=== PATIENT | female | born 1970 | race Caucasian/White ===

== ENCOUNTER 2018-01-01 15:10 | Emergency (ER) | payer OTHER ==
[~2018-01-01] VITALS: Ht 172.7 cm; Wt 67.1 kg
[2018-01-01] MEDS ORDERED: Augmentin 875-1 EACH PO (17:21)
[2018-01-01] MEDS ORDERED: FLUC150A PO (17:21)
== END 2018-01-01 17:34 | disposition home or self-care (01) ==
LOC: ER 15:10
DX: S61.551A Open bite of right wrist, initial encounter (principal); S61.452A Open bite of left hand, initial encounter; S61.451A Open bite of right hand, initial encounter; S61.051A Open bite of right thumb without damage to nail, initial encounter; S61.253A Open bite of left middle finger without damage to nail, initial encounter; F17.200 Nicotine dependence, unspecified, uncomplicated; W54.0XXA Bitten by dog, initial encounter
CPT/HCPCS: 73120; 73140; 90471; 90714; 99283

== ENCOUNTER → 2018-07-05 | Outpatient (CLI) | payer OTHER ==
[~2018-07-05] MED LIST: Augmentin 875-1 EACH PO; FLUC150A PO
== END ==
LOC: LAB SHORT 17:06 → LAB EV 17:06
DX: K61.2 Anorectal abscess (principal)
CPT/HCPCS: 87070; 87075; 87076; 87077; 87185; 87186; 87205

== ENCOUNTER 2018-11-06 08:51 | Day surgery (SDC) | payer OTHER ==
[~2018-11-06] VITALS: Ht 172.7 cm; Wt 66.8 kg
[~2018-11-06 08:51] MED LIST changes: +LIOT25
[2018-11-06] MEDS ORDERED: MELO7.5 (09:33)
[2018-11-06] MEDS ORDERED: ALPR.5 (09:33)
[2018-11-06] MEDS ORDERED: GABA300 (09:33)
== END 2018-11-06 10:51 | disposition home or self-care (01) ==
LOC: ORSCSDS 08:51
PROVIDERS: Surgery
PROC: 0DJD8ZZ Inspection of Lower Intestinal Tract, Via Natural or Artificial Opening Endoscopic (ICD-10-PCS; principal; 2018-11-06 10:00)
DX: Z12.11 Encounter for screening for malignant neoplasm of colon (principal); E03.9 Hypothyroidism, unspecified; F17.210 Nicotine dependence, cigarettes, uncomplicated; Z79.899 Other long term (current) drug therapy
CPT/HCPCS: J7120

== ENCOUNTER 2019-10-20 07:33 | Day surgery (SDC) | payer OTHER ==
[~2019-10-20] VITALS: Ht 172.7 cm; Wt 65.4 kg
[~2019-10-20 07:33] MED LIST changes: +ADVIL PO; +ALPR.5 PO; +CYCL10 PO; +GABA300 PO; -LIOT25; +LIOT25 PO; +MELO7.5 PO; +PSEU120ER PO; +TRAM50 PO; +[UNRECOGNIZED DRUG - MIXTURE] SL; +[UNRECOGNIZED DRUG - OTHER] VAG
--- NOTE | 2019-10-20 08:20 | NUR ---
Ambulatory in Day Surgery History, Chart, Medications and Allergies reviewed before start of procedure.Patient confirms NPO status and agrees with scheduled surgery. Patient reports completing Chlorhexadine shower X2 prior to admission to hospital.Lungs clear T/O to Auscultation. Patient States Post-Procedure ride home has been arranged. NOSE JEWELERY TAPED AND CONSENT SIGNED.
== END 2019-10-20 12:01 | disposition home or self-care (01) ==
LOC: ORSCMMR 07:33 → ORD 09:00 → ORSCMMR 09:00
PROVIDERS: Surgery
PROC: 0DBQ3ZZ Excision of Anus, Percutaneous Approach (ICD-10-PCS; principal; 2019-10-20 09:00)
DX: K61.2 Anorectal abscess (principal); E03.9 Hypothyroidism, unspecified; Z79.899 Other long term (current) drug therapy; F17.210 Nicotine dependence, cigarettes, uncomplicated
CPT/HCPCS: 88304; A9270-GY; J0690; J2704; J3010; J7120

== ENCOUNTER 2025-01-16 20:08 | Inpatient (IN) | payer BC ==
[~2025-01-16] VITALS: Ht 170.2 cm; Wt 68.5 kg
[~2025-01-16 20:08] MED LIST changes: +Ativan1 MG SL; +EUTHYROX25 MC1 PO
[2025-01-16] MEDS ORDERED: Ondansetron HCl 2 MG / ML 2ML Vial IV ONE (20:45)
[2025-01-16] MEDS ORDERED: HYDROmorphone HCl/Pf 1MG SYR IV ONE ×2 (20:45→22:30)
[2025-01-16 20:49] LABS: BASOPHILS ABSOLUTE AUTO 0.08 K/mm3 (0.00-0.23); BASOPHILS PERCENT AUTO 1 % (0-2); EOSINOPHILS ABSOLUTE AUTO 0.14 K/mm3 (0.00-0.68); EOSINOPHILS PERCENT AUTO 1 % (0-6); Hematocrit 39.8 % (33.0-51.0); Hemoglobin 13.4 g/dL (11.5-16.0); IMMATURE GRAN ABSOLUTE AUTO 0.08 K/mm3 (0.00-0.10); IMMATURE GRAN PERCENT AUTO 1 % (0-1); LYMPHOCYTES ABSOLUTE AUTO 2.28 K/mm3 (0.84-5.20); LYMPHOCYTES PERCENT AUTO 15 % (21-46); MONOCYTES ABSOLUTE AUTO 0.79 K/mm3 (0.16-1.47); MONOCYTES PERCENT AUTO 5 % (4-13); Mean Corpuscular HGB 31.5 pg (26.0-34.0); Mean Corpuscular HGB Conc 33.7 g/dL (31.5-36.5); Mean Corpuscular Volume 93 fL (80-100); Mean Platelet Volume 10.6 fL (9.1-12.4); NEUTROPHILS PERCENT AUTO 78 % (41-73); Platelet Count 276 K/mm3 (150-400); RDW Coefficient Variation 12.5 % (11.7-14.2); RDW Standard Deviation 42.9 fL (35.1-46.3); Red Blood Cell Count 4.26 M/mm3 (3.80-5.20); White Blood Cell Count 15.17 K/mm3 (4.00-11.30)
[2025-01-16 21:09] LABS: Albumin, Blood 3.9 g/dL (3.4-5.0); Albumin/Globulin Ratio 1.4 (0.8-1.8); Bilirubin, Total 0.5 mg/dL (0.1-1.0); Bun/Creatinine Ratio 23.2 (12.0-20.0); Calcium, Blood 8.9 mg/dL (8.5-10.1); Creatinine, Blood 0.73 mg/dL (0.40-1.00); Globulin, Blood 2.8 g/dL (2.2-4.0); Potassium, Blood 3.5 mmol/L (3.5-5.5); Total Protein, Blood 6.7 g/dL (6.4-8.2)
[2025-01-17] MEDS ORDERED: Ondansetron HCl 2 MG / ML 2ML Vial IV PRN (01:00)
[2025-01-17] MEDS ORDERED: Lactated Ringer's 1,000 ML IV SCH ×2 (01:00→12:10)
[2025-01-17] MEDS ORDERED: HYDROmorphone HCl/Pf 1MG SYR IV ONE (01:25)
[2025-01-17] MEDS ORDERED: FentaNYL Citrate 50 MCG/ML 2 ML Injection IV PRN ×2 (01:25→09:10)
[2025-01-17 01:48] VITALS: BP 101/54
[2025-01-17] MEDS ORDERED: Ketorolac Tromethamine 15mg Vial IV PRN (02:10)
[2025-01-17] MEDS ORDERED: Calcium Carbonate 500 MG Tab Chew PO PRN (02:15)
[2025-01-17] MEDS ORDERED: CELE100 PO (02:32)
[2025-01-17] MEDS ORDERED: PROGESTERONE 200 MG (02:34)
[2025-01-17 03:58] LABS: BASOPHILS ABSOLUTE AUTO 0.05 K/mm3 (0.00-0.23); BASOPHILS PERCENT AUTO 0 % (0-2); EOSINOPHILS PERCENT AUTO 1 % (0-6); Hematocrit 37.4 % (33.0-51.0); Hemoglobin 12.5 g/dL (11.5-16.0); IMMATURE GRAN ABSOLUTE AUTO 0.04 K/mm3 (0.00-0.10); IMMATURE GRAN PERCENT AUTO 0 % (0-1); LYMPHOCYTES ABSOLUTE AUTO 2.13 K/mm3 (0.84-5.20); LYMPHOCYTES PERCENT AUTO 19 % (21-46); MONOCYTES ABSOLUTE AUTO 0.69 K/mm3 (0.16-1.47); MONOCYTES PERCENT AUTO 6 % (4-13); Mean Corpuscular HGB 31.6 pg (26.0-34.0); Mean Corpuscular HGB Conc 33.4 g/dL (31.5-36.5); Mean Corpuscular Volume 94 fL (80-100); Mean Platelet Volume 10.2 fL (9.1-12.4); NEUTROPHILS ABSOLUTE AUTO 8.35 K/mm3 (1.96-9.15); NEUTROPHILS PERCENT AUTO 73 % (41-73); Platelet Count 248 K/mm3 (150-400); RDW Coefficient Variation 12.4 % (11.7-14.2); RDW Standard Deviation 43.5 fL (35.1-46.3); Red Blood Cell Count 3.96 M/mm3 (3.80-5.20); White Blood Cell Count 11.36 K/mm3 (4.00-11.30)
[2025-01-17 04:27] LABS: Albumin, Blood 3.3 g/dL (3.4-5.0); Albumin/Globulin Ratio 1.3 (0.8-1.8); Bilirubin, Total 0.4 mg/dL (0.1-1.0); Bun/Creatinine Ratio 21.3 (12.0-20.0); Calcium, Blood 8.7 mg/dL (8.5-10.1); Creatinine, Blood 0.7 mg/dL (0.40-1.00); Globulin, Blood 2.6 g/dL (2.2-4.0); Magnesium, Blood 1.7 mg/dL (1.6-2.4); Potassium, Blood 3.7 mmol/L (3.5-5.5); Total Protein, Blood 5.9 g/dL (6.4-8.2)
--- NOTE | 2025-01-17 05:56 | NUR ---
SHIFT SUMMARY PT ER ADMIT THIS SHIFT FOR SBO, PT HAS RESTED IN BED SINCE ADMISSION. PAIN HAS BEEN WELL CONTROLLED WITH MEDS PER EMAR. PT HAS HAD NO N/V. ABD IS TENDER, BOWEL TONES HYPERACTIVE. IVF INFUSING. PLAN IS FOR BOWEL REST. VITALS STABLE, BED IN LOWEST POSITION, CALL LIGHT WITHIN REACH.
[2025-01-17 07:06] VITALS: BP 113/49
[2025-01-17] MEDS ORDERED: Liothyronine Sodium 5 MCG Tab PO SCH (09:00)
[2025-01-17] MEDS ORDERED: Levothyroxine Sodium 0.025 MG Tab PO SCH (09:00)
[2025-01-17] MEDS ORDERED: HYDROmorphone HCl/Pf 1MG SYR IV PRN ×2 (13:30→13:44)
[2025-01-17 14:09] VITALS: BP 128/71
[2025-01-17 14:10] VITALS: BP 128/71
--- NOTE | 2025-01-17 14:27 | NUR ---
PT CONTINUED TO REPORT ELEVATED PAIN AFTER SHE RETURNED FROM SMALL BOWEL FOLLOW THROUGH AND AFTER GETTING FENTANYL. DILAUDID GIVEN PER ORDER. PT PLACED ON CONTINUOUS PULSE OX FOR HIGH RISK PAIN MANAGEMENT. PAIN IMPROVED FROM 10/10 TO 2/10.
[2025-01-17] MEDS ORDERED: Ondansetron HCl 2 MG / ML 2ML Vial IV ONE (14:40)
--- NOTE | 2025-01-17 14:57 | NUR ---
PATIENT COMPLAINED OF SEVEREE ABDOMINAL PAIN 9/10 AND NAUSEA. MEDICATED PER EMAR. ICE PACK TO BACK OF NECK, FAN IN HER FACE FOR COMFORT. IS AT THE BEDSIDE. PATIENT IS HAVING SOME RELIEF AT THIS TIME. NO VOMITING.
[2025-01-17 15:01] VITALS: BP 133/75
--- NOTE | 2025-01-17 17:16 | NUR ---
PATIENT IS ALERT AND ORIENTED AND COOPERATIVE WITH CARE. C/O MILD ABD PAIN THIS MORNING THAT INCREASED DRASTICALLY FOLLOWING THE SMALL BOWEL FOLLOW THROUGH. SHE NEEDED IV PAIN AND NAUSEA MEDICATIONS FOR PAIN 06/30. SHE DID PUKE UP THE REMAINING CONTRAST AFTER A COUPLE HOURS. REPORTS BELCHING. NO BM. WAS AT THE BEDSIDE MOST OF THE DAY. PATIENT REMAINS NPO. SBA IN THE ROOM BECAUSE OF LINES. LR RUNNING AT 125/HR. ON RA WITH CONTINUOUS PULSE OX IN PLACE. PATIENT IS GETTING SOME REST NOW. SOUNDS LIKE THE PLAN IS FOR ONE MORE SET OF IMAGES PER DR. ABURTO. WILL CONTINUE TO MONITOR.
[2025-01-17 19:03] VITALS: BP 124/55
[2025-01-17] MEDS ORDERED: Gabapentin 300 MG Cap PO SCH (21:00)
[2025-01-18] VITALS (18 sets, daily range): BP systolic 100–141; BP diastolic 47–89
[2025-01-18] MEDS ORDERED: Promethazine HCl 25 MG Supp PR PRN (00:35)
[2025-01-18 04:35] LABS: BASOPHILS ABSOLUTE AUTO 0.06 K/mm3 (0.00-0.23); BASOPHILS PERCENT AUTO 0 % (0-2); EOSINOPHILS ABSOLUTE AUTO 0.04 K/mm3 (0.00-0.68); EOSINOPHILS PERCENT AUTO 0 % (0-6); Hemoglobin 15.1 g/dL (11.5-16.0); IMMATURE GRAN ABSOLUTE AUTO 0.07 K/mm3 (0.00-0.10); IMMATURE GRAN PERCENT AUTO 0 % (0-1); LYMPHOCYTES ABSOLUTE AUTO 1.82 K/mm3 (0.84-5.20); LYMPHOCYTES PERCENT AUTO 10 % (21-46); MONOCYTES ABSOLUTE AUTO 1.09 K/mm3 (0.16-1.47); MONOCYTES PERCENT AUTO 6 % (4-13); Mean Corpuscular HGB 32.1 pg (26.0-34.0); Mean Corpuscular HGB Conc 34.3 g/dL (31.5-36.5); Mean Corpuscular Volume 93 fL (80-100); Mean Platelet Volume 10.4 fL (9.1-12.4); NEUTROPHILS ABSOLUTE AUTO 15.67 K/mm3 (1.96-9.15); NEUTROPHILS PERCENT AUTO 84 % (41-73); Platelet Count 285 K/mm3 (150-400); RDW Coefficient Variation 12.5 % (11.7-14.2); RDW Standard Deviation 43.3 fL (35.1-46.3); Red Blood Cell Count 4.71 M/mm3 (3.80-5.20); White Blood Cell Count 18.75 K/mm3 (4.00-11.30)
[2025-01-18 04:59] LABS: Albumin, Blood 3.9 g/dL (3.4-5.0); Albumin/Globulin Ratio 1.2 (0.8-1.8); Bilirubin, Total 0.5 mg/dL (0.1-1.0); Bun/Creatinine Ratio 24.6 (12.0-20.0); Calcium, Blood 10.2 mg/dL (8.5-10.1); Creatinine, Blood 0.89 mg/dL (0.40-1.00); Globulin, Blood 3.2 g/dL (2.2-4.0); Potassium, Blood 3.8 mmol/L (3.5-5.5); Total Protein, Blood 7.1 g/dL (6.4-8.2)
[2025-01-18] MEDS ORDERED: NS 250 ML IV ONE (05:40)
--- NOTE | 2025-01-18 05:40 | NUR ---
PT HAD EMESIS 800 ML SINCE RECEIVING PHENERGAN SUPPPOS PER NEW ORDER.VOID HAS BEEN 300 ML. I CALLED AND DISCUSSED I/O, ADVISED PT HAS SLIGHT JVD,BUT DENIES ANY HX CARDIAC ISSUES
--- NOTE | 2025-01-18 06:38 | NUR ---
MUTIPLE ADJUSTMENTS TO HI FLOW TONIGHT.SEE RT NOTES.PT CURRENTLY ON 16l @51%
[2025-01-18] MEDS ORDERED: Lactated Ringer's 1,000 ML IV SCH ×3 (07:20→10:50)
[2025-01-18] MEDS ORDERED: Citric Acid/Sodium Citrate 30 ML BTL PO ONE (07:20)
[2025-01-18] MEDS ORDERED: Midazolam HCl 1MG / ML 2ML Vial IV ONE (07:25)
[2025-01-18] MEDS ORDERED: Albuterol 2.5 MG/3 ML VIAL INH ONE (07:25)
[2025-01-18] MEDS ORDERED: Ipratropium Bromide INH 0.02% 0.5 mg/2.5ML Vial INH ONE (07:25)
[2025-01-18] MEDS ORDERED: Lidocaine HCl 1% 5 ML SYR INJ ONE ×2 (07:25)
[2025-01-18] MEDS ORDERED: Lidocaine HCl 2% 20 ML MDV ONE (07:29)
[2025-01-18] MEDS ORDERED: Dexamethasone Sod Phos 10 MG/ML 1ML VIAL ONE (07:29)
[2025-01-18] MEDS ORDERED: Rocuronium Bromide 10 MG/ML 5ML Injection IV ONE ×2 (07:29→09:29)
[2025-01-18] MEDS ORDERED: propofoL 40 ML IV ONE (07:29)
[2025-01-18] MEDS ORDERED: Ondansetron HCl 2 MG / ML 2ML Vial ONE ×2 (07:29→11:05)
[2025-01-18] MEDS ORDERED: FentaNYL Citrate 50 MCG/ML 2 ML Injection ONE ×3 (07:29→10:21)
[2025-01-18] MEDS ORDERED: Bupivacaine 0.5% HCl 5 MG/ML 30MLVIAL ONE (07:42)
--- NOTE | 2025-01-18 08:28 | NUR ---
PT TO OR VIA BED
[2025-01-18] MEDS ORDERED: CeFAZolin Sodium 2,000 MG VIAL ONE (08:33)
[2025-01-18] MEDS ORDERED: CeFAZolin Sodium 2,000 MG in NS 100 ML IV SCH (08:35)
--- NOTE | 2025-01-18 09:00 | NUR ---
PT TO O.R., 2 IVS PLACED/1 18G INFUSING LR/BREATHING TREATMENT GIVEN/ VERSED 2MG IV GIVEN/JEWELRY REF SIGNED/TAPED, PT A&OX4/VSS/RA/ BEDSIDE FOR SURGEON AND ACP CONSULTS, LEFT VIA GURN WITH EUGENIA REGALADO TO O.R.
[2025-01-18] MEDS ORDERED: Glycopyrrolate 0.2 MG/ML 5ML VIAL ONE (09:56)
[2025-01-18] MEDS ORDERED: Lidocaine HCl 2% Jelly 120MG/6ML SYR (20MG PER ML) ONE (09:56)
[2025-01-18] MEDS ORDERED: Neostigmine Methylsulfate 5MG/5ML SYR ONE (09:56)
[2025-01-18] MEDS ORDERED: FentaNYL Citrate 50 MCG/ML 2 ML Injection IV PRN ×3 (10:10→10:15)
[2025-01-18] MEDS ORDERED: Albuterol 2.5 MG/3 ML VIAL INH PRN (10:15)
[2025-01-18] MEDS ORDERED: Ondansetron HCl 2 MG / ML 2ML Vial IV PRN ×2 (10:15→10:50)
[2025-01-18] MEDS ORDERED: Morphine Sulfate 4 MG/1 ML Injection IV PRN (10:15)
[2025-01-18] MEDS ORDERED: HYDROmorphone HCl/Pf 1MG SYR IV PRN (10:45)
[2025-01-18] MEDS ORDERED: HYDROcodone 5-APAP 325 TAB PO PRN (10:50)
[2025-01-18] MEDS ORDERED: Ketorolac Tromethamine 30mg Vial IV PRN (10:55)
[2025-01-18] MEDS ORDERED: Morphine Sulfate 4 MG/1 ML Injection ONE (11:02)
--- NOTE | 2025-01-18 11:59 | NUR ---
PT TO ROOM 210. GAUZE DRESSING TO UMBILICUS CDI .ABD BINDER ON. PAIN RATED 10/10 PER PT. MEDICATED PER ORDER. SCDS ON. POST OP VS STARTED. WILL CONTINUE TO MONITOR. SPOUSE/SO AT BEDSIDE
[2025-01-18] MEDS ORDERED: CeFAZolin Sodium 1,000 MG in NS 50 ML IV SCH (17:00)
--- NOTE | 2025-01-18 17:08 | NUR ---
END OF SHIFT PT RESTING. RATES PAIN 6/10 UMBILICUS. ABD BINDER REMAINS ON. IV INFUSING PER ORDER. SCDS ON. WILL CONTINUE TO MONITOR
[2025-01-19 03:07] VITALS: BP 118/70
[2025-01-19 05:21] LABS: Hematocrit 37.2 % (33.0-51.0); Hemoglobin 12.8 g/dL (11.5-16.0); Mean Corpuscular HGB 32.3 pg (26.0-34.0); Mean Corpuscular HGB Conc 34.4 g/dL (31.5-36.5); Mean Corpuscular Volume 94 fL (80-100); Mean Platelet Volume 11.3 fL (9.1-12.4); Platelet Count 233 K/mm3 (150-400); RDW Coefficient Variation 12.6 % (11.7-14.2); RDW Standard Deviation 43.7 fL (35.1-46.3); Red Blood Cell Count 3.96 M/mm3 (3.80-5.20); White Blood Cell Count 14.33 K/mm3 (4.00-11.30)
[2025-01-19 05:42] LABS: Calcium, Blood 8.2 mg/dL (8.5-10.1); Creatinine, Blood 1.07 mg/dL (0.40-1.00); Potassium, Blood 4.4 mmol/L (3.5-5.5)
[2025-01-19 05:45] LABS: BAND PERCENT MAN 42 % (0-8); BASOPHILS PERCENT MAN 0 % (0-2); EOSINOPHILS PERCENT MAN 0 % (0-6); LYMPHOCYTES ABSOLUTE MAN 1.28 K/mm3 (0.84-5.20); LYMPHOCYTES PERCENT MAN 9 % (21-46); MONOCYTES ABSOLUTE MAN 0.85 K/mm3 (0.16-1.47); MONOCYTES PERCENT MAN 6 % (4-13); NEUTROPHILS ABSOLUTE MAN 12.18 K/mm3 (1.96-9.15); SEG NEUTROPHILS PERCENT MAN 43 % (41-73); TOTAL CELLS COUNTED 100
--- NOTE | 2025-01-19 06:48 | NUR ---
NOC SUMMARY- PT REQUIRED IV PAIN MEDS. PT ABLE TO SLEEP OFF AND ON. PT AMBULATORY TO BATHROOM. PT HAVING SIPS N CHIPS. NO NAUSEA. PT DRESSING HAS SCANT SHADOWING. NO OTHER ISSUES. CALL LIGHT IN REACH.
[2025-01-19 07:26] VITALS: BP 123/64
[2025-01-19] MEDS ORDERED: Enoxaparin 40 MG/0.4 ML SYR SC SCH (09:00)
[2025-01-19] MEDS ORDERED: OxyCODONE 5 mg/Acetamin 325 mg TABLET PO PRN (16:00)
[2025-01-19 16:54] VITALS: BP 114/61
[2025-01-19] MEDS ORDERED: LORazepam 1 MG Tab PO PRN (16:55)
--- NOTE | 2025-01-19 17:49 | NUR ---
END OF SHIFT PT RESTING COMFORTABLY. PAIN PRESENTLY UNDER CONTROL. ABDOMINAL BINDER ON.
[2025-01-19 20:07] VITALS: BP 113/66
[2025-01-19] MEDS ORDERED: Docusate Sodium 100 MG Cap PO SCH (21:00)
[2025-01-20 04:42] LABS: Hematocrit 31.3 % (33.0-51.0); Hemoglobin 10.3 g/dL (11.5-16.0); Mean Corpuscular HGB 31.4 pg (26.0-34.0); Mean Corpuscular HGB Conc 32.9 g/dL (31.5-36.5); Mean Corpuscular Volume 95 fL (80-100); Mean Platelet Volume 10.8 fL (9.1-12.4); Platelet Count 186 K/mm3 (150-400); RDW Coefficient Variation 12.6 % (11.7-14.2); RDW Standard Deviation 43.8 fL (35.1-46.3); Red Blood Cell Count 3.28 M/mm3 (3.80-5.20)
[2025-01-20 04:58] LABS: Bun/Creatinine Ratio 39.5 (12.0-20.0); Calcium, Blood 7.6 mg/dL (8.5-10.1); Creatinine, Blood 0.89 mg/dL (0.40-1.00); Potassium, Blood 3.6 mmol/L (3.5-5.5)
[2025-01-20 05:07] LABS: BAND PERCENT MAN 43 % (0-8); BASOPHILS PERCENT MAN 0 % (0-2); EOSINOPHILS ABSOLUTE MAN 0.09 K/mm3 (0.00-0.68); EOSINOPHILS PERCENT MAN 2 % (0-6); LYMPHOCYTES ABSOLUTE MAN 0.28 K/mm3 (0.84-5.20); LYMPHOCYTES PERCENT MAN 6 % (21-46); METAMYELOCYTE ABSOLUTE MAN 0.18 K/mm3 (0.00-0.00); METAMYELOCYTE PERCENT MAN 4 % (0-0); MONOCYTES ABSOLUTE MAN 0.32 K/mm3 (0.16-1.47); MONOCYTES PERCENT MAN 7 % (4-13); SEG NEUTROPHILS PERCENT MAN 38 % (41-73); TOTAL CELLS COUNTED 100
--- NOTE | 2025-01-20 06:40 | NUR ---
SHIFT SUMMAYR; PATIENT ONLY NEEDED ZOFRAN ONCE MY SHIFT. PAINT MEDS EFFECTIVE. OXIMETER DROPPING DURING SLEEP SO PUT NC/O2/2L JUST FOR THE NIGHT. THAT HELPED HER GET BETTER SLEEP TONIGHT. LR/125ML/HR ALL NIGHT.
[2025-01-20 08:18] VITALS: BP 106/57
[2025-01-20] MEDS ORDERED: Lactated Ringer's 1,000 ML IV SCH (08:20)
[2025-01-20 15:29] VITALS: BP 104/57
--- NOTE | 2025-01-20 17:22 | NUR ---
SUMMARY PT'S REPORT OF CONFUSION REPORTED TO DR. CONNER THIS AM, NO NEW ORDERS RECEIEVED, DENIES ANY MORE EPISODES OF CONFUSION THE REST OF SHIFT, PT HAS AMBULATED X3 TODAY, DENIES PASSING ANY FLATUS, DENIES ANY NAUSEA, PT HAS HAD 2 PERCOCET FOR PAIN, ABD DSG C/D/I, NO ACUTE CHANGES THIS SHIFT.
[2025-01-20] MEDS ORDERED: OxyCODONE 5 mg/Acetamin 325 mg TABLET PO PRN (17:45)
[2025-01-20] MEDS ORDERED: HYDROmorphone HCl/Pf 1MG SYR IV PRN (17:45)
[2025-01-20 19:58] VITALS: BP 114/71
--- NOTE | 2025-01-21 05:14 | NUR ---
SHIFT SUMMARY NO ACUTE CHANGES OVERNIGHT. PT TOLERATING CLEAR LIQUID DIET. PAIN MANAGED PER EMAR. SURGICAL SITE WNL. BOWEL TONES HYPERACTIVE, PT REPORTS THAT SHE IS STILL NOT PASSING GAS. PT REPORTS NO NAUSEA. VITALS STABLE. PT INDEPENDENT IN ROOM. BED IN LOWEST POSITION, CALL LIGHT WITHIN REACH.
[2025-01-21 05:26] VITALS: BP 115/70
--- NOTE | 2025-01-21 06:47 | NUR ---
CHEST TIGHTNESS AROUND 0530 PT REPORTED CHEST TIGHTNESS. SHE STATES THAT IT IS PROBABLY ANXIETY AND RELATED TO HOW SHE SLEPT, STATING THAT BED WAS UNCOMFORTABLE. SHE REPORTS THAT IT STARTED ABOUT 0230, HOWEVER PT DID NOT REPORT THIS DURING NURSING ROUNDS AND DENIED NEEDS. PT ALSO EXPRESSED ANXIETY REGARDING CURRENT ILLESS AND THAT SHE IS JUST READY TO GO HOME. PT REPORTS SOME SOB. DENIES N/V. SKIN IS DRY. RESP APPEAR E/U. VITALS ARE STABLE. PT TOOK PO ATIVAN EARLIER IN THE SHIFT BUT DECLINES ATIVAN AT THIS TIME. PT DID REQUEST MEDICATION FOR PAIN IN HER ABD. DR. NICHOLE CALLED AND NOTIFIED OF PT REPORTS OF CHEST TIGHTNESS, AND THAT PT EXPRESSED ANXIETY ALSO AND WAS DECLINING ATIVAN. HE GAVE NO ADDITIONAL ORDERS AND STATES JUST TO MONITOR. AT 0640, PT REPORTING THAT THE CHEST TIGHTNESS IS GONE, AND THAT THE PAIN IN HER BELLY HAS IMPROVED WITH TORADOL. PT APPEARING MUCH MORE RELAXED AND IS LAYING IN BED.
[2025-01-21 07:48] VITALS: BP 101/80
[2025-01-21] MEDS ORDERED: Arginine/Glutamine/Calcium Hmb 1 Packet PO SCH (09:00)
--- NOTE | 2025-01-21 11:30 | NUR ---
Pt. is awake and siting on the side of her bed when she welcomes my visit. Pt. is pleasant. Facilitated a life review and listened with interest and empathy. Pt. displayed evidence of awareness and engagement. Pt. welcomed prayer. Prayed with Pt. Pt. verbalized gratitude for the spiritual care visit.
[2025-01-21] MEDS ORDERED: Simethicone 80 MG Chew PO SCH (14:00)
[2025-01-21] MEDS ORDERED: Acetaminophen 325 MG TABLET PO PRN (14:20)
[2025-01-21 15:12] VITALS: BP 127/78
[2025-01-21] MEDS ORDERED: PROGESTERONE200 M1 PO (15:46)
[2025-01-21] MEDS ORDERED: EUTHYROX50 MC1 PO (15:47)
[2025-01-21] MEDS ORDERED: ERGO50000 PO (15:47)
[2025-01-21] MEDS ORDERED: [UNRECOGNIZED DRUG - OTHER] SL (15:49)
--- NOTE | 2025-01-21 16:50 | NUR ---
MARBELLA AMBULATED DOWN THE HALLS MOST OF THE DAY, TORADOL FOR PAIN, PT REPORTS HAVING A SMALL BM THIS AFTERNOON, DIET ADVANCED TO FL PER DR. ABURTO, ABD DSG C/D/I, NO ACUTE CHANGES THIS SHIFT.
[2025-01-21 19:23] VITALS: BP 122/64
[2025-01-22 02:05] VITALS: BP 111/68
[2025-01-22 02:06] VITALS: BP 111/68
--- NOTE | 2025-01-22 04:23 | NUR ---
SHIFT SUMMARY DEISY WAS ALERT AND FULLY ORIENTED ON ASSESSMENT. PT INDEPENDENT. PT IN OBVIOUS PAIN, CLAIMING 5-7 OUT OF 10. PT DECLINES NARCOTIC PAIN MANAGEMENT. PT HAD NO IV ON ASSESSMENT. IV PLACED TO LAC. PAIN MANAGED TO A BEARABLE LEVEL WITH TORRADOL AND TYLENOL. DRESSING TO ABD C/D/I, REDNESS NOTED TO AREA AROUND INSCISION. BT HYPOACTIVE. PT STATES THAT SHE HAS BEEN PASSING FLATUS. NO ACUTE EVENTS OR NOTED CHANGES TO PT CONDITION.
[2025-01-22] MEDS ORDERED: Levothyroxine Sodium 0.025 MG Tab PO SCH (06:00)
[2025-01-22 07:42] VITALS: BP 96/54
[2025-01-22] MEDS ORDERED: ACET325 PO (10:33)
[2025-01-22] MEDS ORDERED: Calcium Carbon500 MG PO (10:34)
[2025-01-22] MEDS ORDERED: Diflucan100 MG PO (10:35)
[2025-01-22 11:36] VITALS: BP 107/61
--- NOTE | 2025-01-22 12:01 | NUR ---
DISCHARGE NOTE PT IS A/OX4, IND, TOLERATING FULL LIQUID DIET. PASSING GAS, HAVING LOOSE BMS. INCISION SITE C/D/I. PAIN MANAGED W/ TORADOL AND TYLENOL. DC INSTRUCTIONS REVIEWED W/ PT AND COPY GIVEN. VSS. PT DC'D VIA WC TO PRIVATE RIDE HOME IN STABLE CONDITION W/ BELONGINGS IN HAND.
== END 2025-01-22 11:52 | disposition home or self-care (01) | DRG 330 ==
LOC: ER 20:08 → SURS 01-17 00:59
PROVIDERS: Emergency Medicine; Family Medicine; Student in an Organized Health Care Education/Training Program; Surgery; ADMIT Student in an Organized Health Care Education/Training Program
PROC: 0DB80ZZ Excision of Small Intestine, Open Approach (ICD-10-PCS; principal; 2025-01-18 08:00)
DX: K56.50 Intestinal adhesions [bands], unspecified as to partial versus complete obstruction (principal); R18.8 Other ascites; K52.9 Noninfective gastroenteritis and colitis, unspecified; E03.9 Hypothyroidism, unspecified; F17.200 Nicotine dependence, unspecified, uncomplicated; Z79.890 Hormone replacement therapy; Z79.1 Long term (current) use of non-steroidal anti-inflammatories (NSAID)
CPT/HCPCS: 36415; 74019; 74177; 74250; 80048; 80053; 83690; 83735; 85025; 88307; 93005; 93010; 94760; 96374-59; 96375; 96376; 99285-25; A9270; G0378; J0690; J1100; J1171; J1650; J1885; J2250; J2270; J2405; J2704; J2710; J3010; J7050; J7120; Q9967

== ENCOUNTER 2025-01-23 07:48 | Observation (INO) | payer BC ==
[~2025-01-23] VITALS: Ht 170.2 cm; Wt 63.6 kg
[~2025-01-23 07:48] MED LIST changes: +ACET325 PO; +CELE100 PO; +Calcium Carbon500 MG PO; +Diflucan100 MG PO; +ERGO50000 PO; +EUTHYROX50 MC1 PO; +PROGESTERONE 200 MG; +PROGESTERONE200 M1 PO; +[UNRECOGNIZED DRUG - OTHER] SL
[2025-01-23 08:47] LABS: BASOPHILS ABSOLUTE AUTO 0.06 K/mm3 (0.00-0.23); BASOPHILS PERCENT AUTO 1 % (0-2); EOSINOPHILS ABSOLUTE AUTO 0.08 K/mm3 (0.00-0.68); EOSINOPHILS PERCENT AUTO 1 % (0-6); Hematocrit 36.7 % (33.0-51.0); Hemoglobin 12.8 g/dL (11.5-16.0); IMMATURE GRAN ABSOLUTE AUTO 0.17 K/mm3 (0.00-0.10); IMMATURE GRAN PERCENT AUTO 2 % (0-1); LYMPHOCYTES ABSOLUTE AUTO 0.85 K/mm3 (0.84-5.20); LYMPHOCYTES PERCENT AUTO 8 % (21-46); MONOCYTES ABSOLUTE AUTO 0.95 K/mm3 (0.16-1.47); MONOCYTES PERCENT AUTO 9 % (4-13); Mean Corpuscular HGB 31.4 pg (26.0-34.0); Mean Corpuscular HGB Conc 34.9 g/dL (31.5-36.5); Mean Corpuscular Volume 90 fL (80-100); Mean Platelet Volume 10.5 fL (9.1-12.4); NEUTROPHILS ABSOLUTE AUTO 9.09 K/mm3 (1.96-9.15); NEUTROPHILS PERCENT AUTO 81 % (41-73); Platelet Count 301 K/mm3 (150-400); RDW Standard Deviation 39.7 fL (35.1-46.3); Red Blood Cell Count 4.08 M/mm3 (3.80-5.20)
[2025-01-23 09:06] LABS: Albumin/Globulin Ratio 0.9 (0.8-1.8); Bilirubin, Total 0.5 mg/dL (0.1-1.0); Bun/Creatinine Ratio 27.5 (12.0-20.0); Calcium, Blood 9.4 mg/dL (8.5-10.1); Creatinine, Blood 0.66 mg/dL (0.40-1.00); Globulin, Blood 3.5 g/dL (2.2-4.0); Potassium, Blood 2.7 mmol/L (3.5-5.5); Total Protein, Blood 6.5 g/dL (6.4-8.2)
[2025-01-23] MEDS ORDERED: NS 500 ML IV SCH (09:20)
[2025-01-23] MEDS ORDERED: Potassium Chl 20MEQ/Water100ML 100 ML IV ONE (09:20)
[2025-01-23] MEDS ORDERED: Ampicillin Sod/Sulbactam Sod 3 GM in NS 100 ML IV ONE (09:25)
[2025-01-23] MEDS ORDERED: Potassium Chloride 20 MEQ/15 ML UDC PO STA (12:16)
[2025-01-23] MEDS ORDERED: NS KCl 20mEq 1,000 ML IV SCH (12:20)
[2025-01-23] MEDS ORDERED: FentaNYL Citrate 50 MCG/ML 2 ML Injection IV PRN (12:20)
--- NOTE | 2025-01-23 14:50 | NUR ---
PT TO ROOM 210. IV INFUSING RIGHT HAND. PT IN NO DISTRESS. VS IN PROGRESS. WILL CONTINUE TO MONITOR.
[2025-01-23 14:54] VITALS: BP 107/67
[2025-01-23] MEDS ORDERED: Potassium Chloride 10 Meq Tablet SA PO ONE (16:05)
[2025-01-23] MEDS ORDERED: Ketorolac Tromethamine 30mg Vial IV PRN (16:05)
[2025-01-23] MEDS ORDERED: Calcium Carbonate 500 MG Tab Chew PO PRN (16:30)
--- NOTE | 2025-01-23 17:34 | NUR ---
END OF SHIFT PT TAKING CLEAR LIQUIDS WITHOUT PROBLEMS. IV INFUSING R HAND WITH POTASSIUM REPLACEMENT. ABD PAD TO INCISION LINE HELD IN PLACE WITH MESH UNDERWEAR WITH SEROUS BROWN DRAINAGE. WILL CONTINUE TO MONITOR.
[2025-01-23 19:29] VITALS: BP 125/56
[2025-01-24 03:24] VITALS: BP 123/63
[2025-01-24 04:57] LABS: BASOPHILS ABSOLUTE AUTO 0.06 K/mm3 (0.00-0.23); BASOPHILS PERCENT AUTO 1 % (0-2); EOSINOPHILS ABSOLUTE AUTO 0.14 K/mm3 (0.00-0.68); EOSINOPHILS PERCENT AUTO 1 % (0-6); Hematocrit 31.3 % (33.0-51.0); Hemoglobin 10.7 g/dL (11.5-16.0); IMMATURE GRAN ABSOLUTE AUTO 0.32 K/mm3 (0.00-0.10); IMMATURE GRAN PERCENT AUTO 3 % (0-1); LYMPHOCYTES ABSOLUTE AUTO 1.35 K/mm3 (0.84-5.20); LYMPHOCYTES PERCENT AUTO 14 % (21-46); MONOCYTES ABSOLUTE AUTO 0.97 K/mm3 (0.16-1.47); MONOCYTES PERCENT AUTO 10 % (4-13); Mean Corpuscular HGB 31.8 pg (26.0-34.0); Mean Corpuscular HGB Conc 34.2 g/dL (31.5-36.5); Mean Corpuscular Volume 93 fL (80-100); Mean Platelet Volume 10.3 fL (9.1-12.4); NEUTROPHILS ABSOLUTE AUTO 6.89 K/mm3 (1.96-9.15); NEUTROPHILS PERCENT AUTO 71 % (41-73); Platelet Count 323 K/mm3 (150-400); RDW Coefficient Variation 12.5 % (11.7-14.2); RDW Standard Deviation 42.8 fL (35.1-46.3); Red Blood Cell Count 3.37 M/mm3 (3.80-5.20); White Blood Cell Count 9.73 K/mm3 (4.00-11.30)
[2025-01-24 05:14] LABS: Bun/Creatinine Ratio 22.3 (12.0-20.0); Calcium, Blood 8.5 mg/dL (8.5-10.1); Creatinine, Blood 0.63 mg/dL (0.40-1.00); Potassium, Blood 3.6 mmol/L (3.5-5.5)
--- NOTE | 2025-01-24 05:15 | NUR ---
GLAZIER HELPER SUMMARY PT AAOX4 AND PLEASANT, INDEPENDENT IN ROOM. LOWER ABD PAIN HAS BEEN WELL CONTROLLED WITH IV TORADOL. MIDLINE ABD INCISION STILL WITH A SMALL AMOUNT OF DRAINAGE AT LOWER SECTION. ABD PAD CHANGED X1 THIS SHIFT. PT HAS HAD SEVERAL LOOSE GREEN BM'S TODAY WHICH SHE SAID IS FIRST BM'S SINCE HER SURGERY. POTASSIUM IMPROVED TO 3.6 WITH MORNING LABS. VSS, WILL CONTINUE TO MONITOR.
[2025-01-24 06:33] VITALS: BP 105/59
[2025-01-24 07:18] VITALS: BP 129/73
[2025-01-24] MEDS ORDERED: Enoxaparin 40 MG/0.4 ML SYR SC SCH (09:00)
[2025-01-24] MEDS ORDERED: Ampicillin Sod/Sulbactam Sod 3 GM in NS 100 ML IV SCH (10:00)
[2025-01-24] MEDS ORDERED: NS 250 ML IV PRN (10:25)
[2025-01-24 15:33] VITALS: BP 119/75
[2025-01-24 19:12] VITALS: BP 128/61
[2025-01-24] MEDS ORDERED: Melatonin 3 MG Tab PO SCH (21:00)
[2025-01-25 03:07] VITALS: BP 119/67
--- NOTE | 2025-01-25 06:52 | NUR ---
DYE MACHINE TENDER SUMMARY PT AAOX4 AND PLEASANT. PAIN CONTROLLED WITH PRN TORADOL. IV ABX Q6H PER DEC. DRESSING ON ABD INCISION CHANGED TWICE THROUGH THE NIGHT DUE TO INCREASED DRAINAGE. DRAINAGE IS A PALE YELLOW COLOR. PT CONTINUED TO HAVE SMALL LOOSE STOOLS. VSS, WILL CONTINUE TO MONITOR.
[2025-01-25 07:12] VITALS: BP 119/71
[2025-01-25] MEDS ORDERED: Arginine/Glutamine/Calcium Hmb 1 Packet PO SCH (09:00)
[2025-01-25] MEDS ORDERED: Banana Flakes/Tos 1 EA Powder Pack PO SCH (09:00)
[2025-01-25] MEDS ORDERED: JUVEN PACKET1 EAC3 PO (12:17)
[2025-01-25] MEDS ORDERED: IBUP400 PO (12:18)
[2025-01-25] MEDS ORDERED: BANATROL PLUS1 EAC1 PO (12:18)
[2025-01-25] MEDS ORDERED: AMOCLA875 PO (12:18)
[2025-01-25] MEDS ORDERED: Percocet 5-3251 EACH PO (12:20)
--- NOTE | 2025-01-25 14:30 | NUR ---
DISCHARGE NOTE PT IS A/OX4, IND IN ROOM, AMBULATING, TOLERATING FULL LIQUID DIET, HAVING LOOSE STOOLS, VOIDING. PAIN MANAGED W/ TORADOL PER EMAR. JEEVAN REGALADO REVIEWED DC INSTRUCTIONS W/ PT, SEE NOTE. ABD PAD TO MIDLINE INCISION CHANGED BEFORE DISCHARGE, MODERATE SEROUS DRAINAGE. PT DC'D VIA WC TO PRIVATE RIDE HOME IN STABLE CONDITION.
--- NOTE | 2025-01-25 14:46 | NUR ---
DISCHARGE REVIEWED ALL DC INSTRUCTIONS, GAVE DRESSING SUPPLIES/COMMUNITY SERVICE ORGANIZATION DIRECTOR. IV DC'D RX FOR PERCOCET GIVEN, ABX SENT TO PHARMACY OF CHOICE. NO FURTHER QUESTIONS/CONCERS. SISTER ALSO PRESENT AND DRIVING PATIENT HOME.
== END 2025-01-25 14:47 | disposition home or self-care (01) ==
LOC: ER 07:48 → SURS 07:49 → ERHOLD 07:49 → SURS 14:44
PROVIDERS: Emergency Medicine; ADMIT Internal Medicine
DX: T81.41XA Infection following a procedure, superficial incisional surgical site, initial encounter (principal); K56.609 Unspecified intestinal obstruction, unspecified as to partial versus complete obstruction; K52.1 Toxic gastroenteritis and colitis; E87.6 Hypokalemia; G89.29 Other chronic pain; M54.9 Dorsalgia, unspecified; G62.9 Polyneuropathy, unspecified; E03.9 Hypothyroidism, unspecified; F17.210 Nicotine dependence, cigarettes, uncomplicated; Z79.890 Hormone replacement therapy; Z79.1 Long term (current) use of non-steroidal anti-inflammatories (NSAID); Z79.899 Other long term (current) drug therapy; Z90.49 Acquired absence of other specified parts of digestive tract; Z90.710 Acquired absence of both cervix and uterus
CPT/HCPCS: 36415; 74177; 80048; 80053; 83735; 84132; 85025; 87070; 87075; 87205; 96365; 96366; 96368; 96372; 96375; 96376; 99285-25; A9270; G0378; J0295; J1650; J1885; J3480; J7030; J7050; Q9967

== ENCOUNTER 2025-02-20 17:09 | Observation (INO) | payer BC ==
[~2025-02-20] VITALS: Ht 170.2 cm; Wt 63.3 kg
[~2025-02-20 17:09] MED LIST changes: +AMOCLA875 PO; +BANATROL PLUS1 EAC1 PO; +IBUP400 PO; +JUVEN PACKET1 EAC3 PO; +Percocet 5-3251 EACH PO
[2025-02-20 17:46] LABS: BASOPHILS ABSOLUTE AUTO 0.08 K/mm3 (0.00-0.23); BASOPHILS PERCENT AUTO 1 % (0-2); EOSINOPHILS PERCENT AUTO 2 % (0-6); Hematocrit 38.2 % (33.0-51.0); Hemoglobin 12.5 g/dL (11.5-16.0); IMMATURE GRAN ABSOLUTE AUTO 0.06 K/mm3 (0.00-0.10); IMMATURE GRAN PERCENT AUTO 1 % (0-1); LYMPHOCYTES ABSOLUTE AUTO 2.73 K/mm3 (0.84-5.20); LYMPHOCYTES PERCENT AUTO 25 % (21-46); MONOCYTES PERCENT AUTO 6 % (4-13); Mean Corpuscular HGB 30.9 pg (26.0-34.0); Mean Corpuscular HGB Conc 32.7 g/dL (31.5-36.5); Mean Corpuscular Volume 94 fL (80-100); NEUTROPHILS ABSOLUTE AUTO 7.35 K/mm3 (1.96-9.15); NEUTROPHILS PERCENT AUTO 66 % (41-73); Platelet Count 277 K/mm3 (150-400); RDW Coefficient Variation 13.3 % (11.7-14.2); RDW Standard Deviation 46.2 fL (35.1-46.3); Red Blood Cell Count 4.05 M/mm3 (3.80-5.20); White Blood Cell Count 11.12 K/mm3 (4.00-11.30)
[2025-02-20 18:18] LABS: Albumin, Blood 3.8 g/dL (3.4-5.0); Albumin/Globulin Ratio 1.4 (0.8-1.8); Bilirubin, Total 0.4 mg/dL (0.1-1.0); Bun/Creatinine Ratio 16.4 (12.0-20.0); Calcium, Blood 9.7 mg/dL (8.5-10.1); Creatinine, Blood 0.79 mg/dL (0.40-1.00); Globulin, Blood 2.7 g/dL (2.2-4.0); Potassium, Blood 3.9 mmol/L (3.5-5.5); Total Protein, Blood 6.5 g/dL (6.4-8.2)
[2025-02-20 18:53] LABS: Source, Urine Clean Catch
[2025-02-20 19:00] LABS: Appearance, Urine Clear (Clear); Bilirubin, Urine Neg (Neg); Blood, Urine Neg (Neg); Glucose Qualitative, Urine Neg (Neg); Ketones, Urine Neg (Neg); Leukocyte Esterase, Urine Neg (Neg); Nitrite, Urine Neg (Neg); Protein, Urine Neg (Neg); Urobilinogen, Urine NORM (Normal)
[2025-02-20 19:04] LABS: Color, Urine Pale Yellow (P-Yellow)
[2025-02-20] MEDS ORDERED: Acetaminophen 325 MG TABLET PO PRN (20:15)
[2025-02-20] MEDS ORDERED: Ondansetron HCl 2 MG / ML 2ML Vial IV PRN (20:15)
[2025-02-20] MEDS ORDERED: Morphine Sulfate 4 MG/1 ML Injection IV PRN (20:15)
[2025-02-20] MEDS ORDERED: Naloxone HCl 0.4MG / ML 1ML Vial IV PRN (20:15)
[2025-02-20] MEDS ORDERED: Docusate Sodium 100 MG Cap PO SCH (21:00)
[2025-02-20] MEDS ORDERED: Ketorolac Tromethamine 15mg Vial IV PRN (21:10)
[2025-02-20] MEDS ORDERED: Lactated Ringer's 1,000 ML IV SCH (21:10)
[2025-02-20] MEDS ORDERED: Cyclobenzaprine HCl 10 MG Tab PO PRN (21:30)
[2025-02-20] MEDS ORDERED: OxyCODONE 5 mg/Acetamin 325 mg TABLET PO PRN (21:30)
[2025-02-20] MEDS ORDERED: CELE100 PO (21:45)
[2025-02-20] MEDS ORDERED: MELO7.5 PO (21:46)
[2025-02-20 21:49] VITALS: BP 112/67
[2025-02-21 05:19] LABS: BASOPHILS ABSOLUTE AUTO 0.06 K/mm3 (0.00-0.23); BASOPHILS PERCENT AUTO 1 % (0-2); EOSINOPHILS ABSOLUTE AUTO 0.27 K/mm3 (0.00-0.68); EOSINOPHILS PERCENT AUTO 3 % (0-6); Hematocrit 35.5 % (33.0-51.0); Hemoglobin 12.1 g/dL (11.5-16.0); IMMATURE GRAN ABSOLUTE AUTO 0.05 K/mm3 (0.00-0.10); IMMATURE GRAN PERCENT AUTO 1 % (0-1); LYMPHOCYTES ABSOLUTE AUTO 2.32 K/mm3 (0.84-5.20); LYMPHOCYTES PERCENT AUTO 22 % (21-46); MONOCYTES ABSOLUTE AUTO 0.74 K/mm3 (0.16-1.47); MONOCYTES PERCENT AUTO 7 % (4-13); Mean Corpuscular HGB 31.8 pg (26.0-34.0); Mean Corpuscular HGB Conc 34.1 g/dL (31.5-36.5); Mean Corpuscular Volume 93 fL (80-100); NEUTROPHILS ABSOLUTE AUTO 7.31 K/mm3 (1.96-9.15); NEUTROPHILS PERCENT AUTO 68 % (41-73); Platelet Count 263 K/mm3 (150-400); RDW Coefficient Variation 13.6 % (11.7-14.2); RDW Standard Deviation 46.1 fL (35.1-46.3); Red Blood Cell Count 3.81 M/mm3 (3.80-5.20); White Blood Cell Count 10.75 K/mm3 (4.00-11.30)
[2025-02-21 05:34] VITALS: BP 105/49
[2025-02-21 05:43] LABS: Albumin/Globulin Ratio 1.2 (0.8-1.8); Bilirubin, Total 0.4 mg/dL (0.1-1.0); Bun/Creatinine Ratio 15.2 (12.0-20.0); Calcium, Blood 8.8 mg/dL (8.5-10.1); Creatinine, Blood 0.73 mg/dL (0.40-1.00); Globulin, Blood 2.6 g/dL (2.2-4.0); Magnesium, Blood 1.6 mg/dL (1.6-2.4); Potassium, Blood 3.8 mmol/L (3.5-5.5); Total Protein, Blood 5.6 g/dL (6.4-8.2)
[2025-02-21] MEDS ORDERED: Liothyronine Sodium 5 MCG Tab PO SCH (06:00)
[2025-02-21] MEDS ORDERED: Levothyroxine Sodium 0.05 MG Tab PO SCH (06:00)
[2025-02-21 07:54] VITALS: BP 111/62
[2025-02-21] MEDS ORDERED: Cholecalciferol 1000 Unit Tablet (=25MCG) PO SCH (09:00)
[2025-02-21 15:35] VITALS: BP 118/58
--- NOTE | 2025-02-21 17:18 | NUR ---
SHIFT SUMMARY/DISCHARGE 1700 PT AOX4, COOPERATIVE, ABLE TO MAKE NEEDS KNOWN. PT IS IND IN ROOM, LR RUNNING MOST OF SHIFT. COMPLAINTS OF ABD PAIN, MEDICATE PER EMAR. PT WAS ANXIOUS TO GO HOME. NO NEW MEDS PRESCRIBED. PT TOELERATED CLEAR LIQUID DIET BEFORE DC AND ADVANCED TOLERATED. PT IV DC'D BY THIS RN WITHOUT EVENTS. PT OPTED TO AMBULATE OUT OF ROOM INSTEAD OF CHOOSING WHEELCHAIR TRANSFER.
[2025-02-21] MEDS ORDERED: Progesterone, Micronized 100 MG Cap PO SCH (21:00)
[2025-02-21] MEDS ORDERED: Gabapentin 300 MG Cap PO SCH (21:00)
== END 2025-02-21 16:56 | disposition home or self-care (01) ==
LOC: ER 17:09 → MEDS 17:10 → ERHOLD 17:10 → MEDS 21:05
PROVIDERS: Student in an Organized Health Care Education/Training Program; ADMIT Student in an Organized Health Care Education/Training Program
DX: R10.30 Lower abdominal pain, unspecified (principal); K42.9 Umbilical hernia without obstruction or gangrene; G89.29 Other chronic pain; E03.9 Hypothyroidism, unspecified; F17.210 Nicotine dependence, cigarettes, uncomplicated; Z79.899 Other long term (current) drug therapy
CPT/HCPCS: 36415; 74177; 74250; 80053; 81003; 82947; 83690; 83735; 85025; 99285-25; A9270; G0378; J7120; Q9967

== ENCOUNTER 2025-07-22 07:56 | Inpatient (IN) | payer BC ==
[~2025-07-22] VITALS: Ht 167 cm; Wt 65.8 kg
[2025-07-22] VITALS (21 sets, daily range): BP systolic 90–111; BP diastolic 42–65
[~2025-07-22 07:56] MED LIST changes: +ACET500 PO; +ALORA1 EA11 TOP; -EUTHYROX50 MC1 PO; +LATISSE5 ML BOTHEYES; +LEVOTHYROXINE25 MC9 PO; -LIOT25 PO; +LIOT5 PO
[2025-07-22] MEDS ORDERED: CeFAZolin Sodium 2,000 MG in NS 100 ML IV SCH (09:05)
[2025-07-22] MEDS ORDERED: FentaNYL Citrate 50 MCG/ML 2 ML Injection ONE ×2 (09:07→12:52)
[2025-07-22] MEDS ORDERED: Midazolam HCl 1MG / ML 2ML Vial ONE (09:07)
[2025-07-22] MEDS ORDERED: LORAZEPAM0.5 MG PO (09:42)
[2025-07-22] MEDS ORDERED: VITAMIN D5000 UNIT PO (09:43)
[2025-07-22] MEDS ORDERED: Bupivacaine 0.5% HCl 5 MG/ML 30MLVIAL ONE (09:44)
[2025-07-22] MEDS ORDERED: Ketorolac Tromethamine 30mg Vial ONE (11:11)
[2025-07-22] MEDS ORDERED: Sugammadex Sodium 200 MG/2ML SDV (100 MG/ML) ONE (11:11)
[2025-07-22] MEDS ORDERED: Dexamethasone Sod Phos 10 MG/ML 1ML VIAL ONE (12:31)
[2025-07-22] MEDS ORDERED: Ondansetron HCl 2 MG / ML 2ML Vial ONE (12:31)
[2025-07-22] MEDS ORDERED: HYDROcodone 5-APAP 325 TAB PO PRN (12:40)
[2025-07-22] MEDS ORDERED: FentaNYL Citrate 50 MCG/ML 2 ML Injection IV PRN ×3 (12:40→12:45)
[2025-07-22] MEDS ORDERED: FLU VACC TS2025-26(6MOS UP)/PF 45 MCG/0.5 ML SYRINGE IM SCH (12:40)
[2025-07-22] MEDS ORDERED: Ondansetron HCl 2 MG / ML 2ML Vial IV PRN ×2 (12:40→12:45)
[2025-07-22] MEDS ORDERED: HYDROmorphone HCl/Pf 1MG SYR IV PRN ×2 (12:45)
[2025-07-22] MEDS ORDERED: HYDROmorphone HCl/Pf 1MG SYR ONE ×2 (12:52→13:13)
--- NOTE | 2025-07-22 14:00 | NUR ---
ARRIVAL TO SURGICAL UNIT VIA GOURNEY. SLID TO HOSPITAL BED. ALERT, ORIENTED, PLEASANT. 2L NC. LUNGS CLEAR. HRR. ABD SOFT w/ MIDLINE INC w/ STERI STRIPS THEN ABD PAD & ABD BINDER OVER. RLQ w/ PASHA; SS FLUID. DENIES N/V & PAINFUL BUT TOLERABLE.
--- NOTE | 2025-07-22 16:15 | NUR ---
SHIFT SUMMARY S/P HERNIA REPAIR WITH MESH. POST OP VSS AND IN PROGRESS. MIDLINE ABD INCISION WITH STERI STRIPS + ABD PAD + BINDER IN PLACE IS CDI. PASHA DRAIN TO RLQ WITH SS DRAINAGE AND BULB COMPRESSED. 2 NORCO FOR PAIN CONTROL. VIRI REG PO INTAKE. UP TO BATHROOM TO VOID WHEN ARRIVAL TO UNIT. USES CALL LIGHT APPROPRIATELY.
[2025-07-23 04:16] VITALS: BP 97/54
--- NOTE | 2025-07-23 04:56 | NUR ---
MANAGED CARE NURSE SUMMARY PT IS POD 0 FOR HERNIA REPAIR WITH MESH. DRESSING TO MIDLINE ABD C/D/I WITH BINDER IN PLACE. PASHA DRAIN TO RLQ PUTTING OUT SMALL AMOUNT OF SS DRAINAGE. PT HAS BEEN TOLERATING PO AND HAS BEEN UP TO VOID SEVERAL TIMES TONIGHT. PT HAS NOT HAD A BM BUT DOES REPORT PASSING GAS REGULARLY. PAIN HAS BEEN ADEQUATELY CONTROLLED WITH 2 TABS OF NORCO. VSS, WCTM.
[2025-07-23 05:02] LABS: BASOPHILS ABSOLUTE AUTO 0.03 K/mm3 (0.00-0.23); BASOPHILS PERCENT AUTO 0 % (0-2); EOSINOPHILS ABSOLUTE AUTO 0.07 K/mm3 (0.00-0.68); EOSINOPHILS PERCENT AUTO 0 % (0-6); Hematocrit 35.7 % (33.0-51.0); Hemoglobin 12.1 g/dL (11.5-16.0); IMMATURE GRAN ABSOLUTE AUTO 0.07 K/mm3 (0.00-0.10); IMMATURE GRAN PERCENT AUTO 0 % (0-1); LYMPHOCYTES ABSOLUTE AUTO 2.51 K/mm3 (0.84-5.20); LYMPHOCYTES PERCENT AUTO 14 % (21-46); MONOCYTES ABSOLUTE AUTO 1.12 K/mm3 (0.16-1.47); MONOCYTES PERCENT AUTO 6 % (4-13); Mean Corpuscular HGB Conc 33.9 g/dL (31.5-36.5); Mean Corpuscular Volume 94 fL (80-100); NEUTROPHILS ABSOLUTE AUTO 14.61 K/mm3 (1.96-9.15); NEUTROPHILS PERCENT AUTO 79 % (41-73); NRBC ABSOLUTE 0.00 K/mm3 (0.00-0.02); NRBC Auto 0.0 /100 WBC (0.0-0.2); Platelet Count 255 K/mm3 (150-400); RDW Coefficient Variation 12.4 % (11.7-14.2); RDW Standard Deviation 43.0 fL (35.1-46.3)
[2025-07-23 05:23] LABS: Anion Gap 6.0 mmol/L (3-11); Blood Urea Nitrogen 20.0 mg/dL (8-24); CO2, Blood 26.0 mmol/L (21-32); Calcium, Blood 8.6 mg/dL (8.5-10.1); Chloride, Blood 109.0 mmol/L (98-108); Creatinine, Blood 0.74 mg/dL (0.40-1.00); Glucose, Blood 105.0 mg/dL (70-99); Potassium, Blood 3.8 mmol/L (3.5-5.5); Sodium, Blood 137.0 mmol/L (136-145)
[2025-07-23 07:47] VITALS: BP 106/53
[2025-07-23] MEDS ORDERED: HYDR1TAB94 PO (15:34)
--- NOTE | 2025-07-23 15:47 | NUR ---
DISCHARGE PT EDUCATED ON AND RECEIVED PRINTED DISCHARGE INSTRUCTIONS AND VERB AN UNDERSTANDING. EDUCATED ON PASHA DRAIN MANAGMENT AND PT DEMONSTRATED EMPTYING AND PROPER CARE. IV DC'D. PT REPORTS FILLED RX. PT GATHERED PERSONAL BELONGINGS AND ESCORTED OUT TO VEHICLE VIA W/C.
== END 2025-07-23 16:00 | disposition home or self-care (01) | DRG 355 ==
LOC: SURS 07:56
PROVIDERS: ADMIT Surgery
PROC: 3E03329 Introduction of Other Anti-infective into Peripheral Vein, Percutaneous Approach (ICD-10-PCS; 2025-07-22)
PROC: 0WUF0JZ Supplement Abdominal Wall with Synthetic Substitute, Open Approach (ICD-10-PCS; principal; 2025-07-22 10:00)
DX: K43.2 Incisional hernia without obstruction or gangrene (principal); M19.90 Unspecified osteoarthritis, unspecified site; E03.9 Hypothyroidism, unspecified; F17.210 Nicotine dependence, cigarettes, uncomplicated; Z90.710 Acquired absence of both cervix and uterus; Z98.890 Other specified postprocedural states; Z79.1 Long term (current) use of non-steroidal anti-inflammatories (NSAID); Z79.890 Hormone replacement therapy; Z79.899 Other long term (current) drug therapy
CPT/HCPCS: 36415; 80048; 85025; A9270; C1781; J0690; J1100; J1171; J1885; J2250; J2405; J2704; J3010; J7120